=== PATIENT | male | born 1990 ===

== ENCOUNTER 2018-06-11 15:26 | Observation (INO) | payer BC ==
[2018-06-11 15:26] VITALS: BMI 28.2
--- NOTE | 2018-06-11 17:00 | ED PDOC ---
Arrival/HPI - General Chief Complaint: Palpitations Time Seen by Provider: 06/11/18 15:30 Historian: Patient - History of Present Illness Narrative History of Present Illness (Text): 06/11/18 16:58 27 year old male, with hx of HLD, presents to the Emergency Department complaining of worsening lightheadedness/ dizziness and palpitation since prior to arrival. Patient states symptoms began couple months ago with multiple episodes of dizziness and chest palpitations, which resolved spontaneously. Patient was seen by Dr. Sr for the presented symptoms and was noted to have 44% ejection rate after an Echocardiogram. Patient was soon started on Entresto with no improvement to symptoms. Patient states having a stress test done with Dr. Coulter yesterday with no acute findings and was asked to follow-up in a week. As per patient, the symptoms worsened secondary to anxiety and now presents to the Emergency Department for medical evaluation. Patient informs intermittent chest pressure and decreased appetite but denies any leg swelling. He notes intermittent DSOUZA, without orthopnea or PND. Patient denies any fever, chills, nausea, vomiting, diarrhea, constipation, abdominal pain, sick contact, work or family stressors or any other complaints. 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 Patient denies smoking cigarettes, or drinking alcohol but informs occasional caffeine intake. PMD: Dr. Winchester Cards: Dr. Coulter 06/11/18 18:48 Time/Duration: Prior to Arrival Symptom Course: Unchanged Quality: Tightness Activities at Onset: Light Context: Home Past Medical History - Provider Review Nursing Documentation Reviewed: Yes - Cardiac Hx Cardiac Disorders: Yes - Pulmonary Hx Respiratory Disorders: No - Neurological Hx Neurological Disorder: No - HEENT Hx HEENT Disorder: No - Renal Hx Renal Disorder: No - Endocrine/Metabolic Hx Endocrine Disorders: No - Hematological/Oncological Hx Blood Disorders: No - Integumentary Hx Dermatological Disorder: No - Musculoskeletal/Rheumatological Hx Musculoskeletal Disorders: No - Gastrointestinal Hx Gastrointestinal Disorders: No - Genitourinary/Gynecological Hx Genitourinary Disorders: No - Psychiatric Hx Psychophysiologic Disorder: No Hx Substance Use: No - Surgical History Hx Orthopedic Surgery: Yes (left arm) - Anesthesia Hx Anesthesia: Yes Hx Anesthesia Reactions: No Family/Social History - Physician Review Nursing Documentation Reviewed: Yes Family/Social History: No Known Family HX Smoking Status: Never Smoked Hx Alcohol Use: No Hx Substance Use: No Allergies/Home Meds Allergies/Adverse Reactions: Allergies No Known Allergies Allergy (Verified 06/10/18 11:42) Home Medications: Home Meds Medication Instructions Recorded Confirmed Aspirin [Adult Low Dose Aspirin EC] 81 mg PO DAILY 06/10/18 06/10/18 Rosuvastatin Calcium [Crestor] 10 mg PO DAILY 06/10/18 06/10/18 Sacubitril/Valsartan [Entresto 24 1 tab PO DAILY 06/10/18 06/10/18 mg-26 mg] Review of Systems - Physician Review All systems were reviewed & negative as marked: Yes - Review of Systems Constitutional: absent: Fevers Respiratory: absent: SOB, Cough Cardiovascular: Chest Pain ("chest pressure"), Palpitations Gastrointestinal: absent: Abdominal Pain, Constipation, Diarrhea, Nausea, Vomiting Neurological: Dizziness Physical Exam Vital Signs Reviewed: Yes Vital Signs Temp Pulse Resp BP Pulse Ox 06/11/18 19:13 101 H 18 135/80 99 06/11/18 17:00 107 H 18 139/76 100 06/11/18 15:53 98.4 F 92 H 18 136/79 100 Temperature: Afebrile Blood Pressure: Normal Pulse: Tachycardic Respiratory Rate: Normal Appearance: Positive for: Well-Appearing, Non-Toxic, Comfortable Pain Distress: None Mental Status: Positive for: Alert and Oriented X 3 - Systems Exam Head: Present: Atraumatic, Normocephalic Pupils: Present: PERRL Extroacular Muscles: Present: EOMI Conjunctiva: Present: Normal Mouth: Present: Moist Mucous Membranes Neck: Present: Normal Range of Motion Respiratory/Chest: Present: Clear to Auscultation, Good Air Exchange. No: Respiratory Distress, Accessory Muscle Use Cardiovascular: Present: Normal S1, S2, Tachycardic. No: Murmurs Abdomen: Present: Normal Bowel Sounds. No: Tenderness, Distention, Peritoneal Signs Back: Present: Normal Inspection. No: CVA Tenderness, Paraspinal Tenderness Upper Extremity: Present: Normal Inspection. No: Cyanosis, Edema Lower Extremity: Present: Normal Inspection. No: Edema Neurological: Present: GCS=15, CN II-XII Intact, Speech Normal Skin: Present: Warm, Dry, Normal Color. No: Rashes Psychiatric: Present: Alert, Oriented x 3, Normal Insight, Normal Concentration Medical Decision Making ED Course and Treatment: 06/11/18 16:54 Impression: 27 year old male presents to the Emergency Department for lightheadedness/dizziness and palpitation. Given hx of recent dental procedure 1mo prior, as well as cp pain, without fever ?endocarditis vs myocardidits. Given EF changes, no intermittent fevers, was on abx w/ dental procedure, less likey endocarditis. Myocarditis still possible. Last EF was 40-45%, placed on HF med and given F/U. Had negative stress 1d prior, however has worsening DSOUZA. Patient may have worsening LV function, with intact coronaries (non ACS related LV dysfx). Differential Diagnosis included but are not limited to: myocarditis, PE Plan: -- CTA of Chest -- EKG -- Labs -- Blood Culture -- Reassess and disposition Prior Visits: Notes and results from previous visits were reviewed. Progress Notes: EKG:Ordered, reviewed, and independently interpreted the EKG. Rate : 91 BPM Rhythm : NSR Interpretation : No ST-segment elevations or depressions, no T-wave inversions, normal intervals. 06/11/18 18:15 BNP 1st trop unremarkable. labs largely unremarkable Discussed case with Dr. Winchester, who is aware and agrees with Emergency Department management plan, informs patient recently had a campaign consultant appt. Paged Dr. Coulter on cardiology consult. 1946 Appreciate consult w/ Dr. Coulter: will see Pt. Reccomends CTPE. 1950 Negative PE study. Given continued SOB w/ exertion and ?myocarditis will obs. ASA, 2nd trop ordered. Patient likely requies repeat Echo to assess LVEF fx. Given that previous LVEF was 40% w/ out lab findings of elevated BNP but that now pt has worsening DSOUZA, pt likely requies repeat Echo in obs to assess LVEF. 06/11/18 20:08 - Lab Interpretations Lab Results: 06/11/18 15:45 06/11/18 15:45 Lab Results 06/11/18 15:45: TSH 3rd Generation 1.26 06/11/18 15:45: Sodium 139, Potassium 4.0, Chloride 99, Carbon Dioxide 26, Anion Gap 19, BUN 12, Creatinine 0.9, Est GFR ( Amer) > 60, Est GFR (Non- Af Amer) > 60, Random Glucose 115 H, Calcium 9.5, Magnesium 1.8, Total Bilirubin 0.6, AST 29, ALT 25, Alkaline Phosphatase 81, Troponin I < 0.01, NT- Pro-B Natriuret Pep 11.0, Total Protein 7.8, Albumin 4.7, Globulin 3.1, Albumin/ Globulin Ratio 1.5 06/11/18 15:45: WBC 8.8, RBC 4.58, Hgb 14.0, Hct 39.5 L, MCV 86.2, MCH 30.6, MCHC 35.4, RDW 12.3, Plt Count 178, MPV 12.2 H, Gran % 70.3 H, Lymph % (Auto) 24.0, Childress % (Auto) 4.8, Eos % (Auto) 0.7 L, Baso % (Auto) 0.2, Gran # 6.16, Lymph # (Auto) 2.1, Childress # (Auto) 0.4, Eos # (Auto) 0.1, Baso # (Auto) 0.02 - RAD Interpretation Radiology Orders: 06/11/18 16:54 ANGIO CHEST PE PROTOCOL [CT] Stat - EKG Interpretation Interpreted by ED Physician: Yes Type: 12 lead EKG - Medication Orders Current Medication Orders: Acetaminophen (Tylenol 325mg Tab) 650 mg PO Q6 PRN PRN Reason: TEMP>=99.5F Aspirin (Ecotrin) 81 mg PO DAILY [facility] Enoxaparin Sodium (Lovenox) 40 mg SC DAILY [facility] PRN Reason: Protocol Metoprolol Tartrate (Lopressor) 25 mg PO Q12H [facility] Non-Formulary Medication (Rosuvastatin Calcium [Crestor]) 10 mg PO DAILY [facility] Pantoprazole Sodium (Protonix Ec Tab) 20 mg PO 0600,1600 [facility] Sacubitril/Valsartan (Entresto 24 Mg-26 Mg Tablet) each PO DAILY [facility] Discontinued Medications Aspirin (Aspirin) 325 mg PO STAT STA Stop: 06/11/18 19:34 Atorvastatin Calcium (Lipitor) 40 mg PO STAT STA Stop: 06/11/18 19:40 Clopidogrel Bisulfate (Plavix) 75 mg PO STAT STA Stop: 06/11/18 19:40 - Scribe Statement The provider has reviewed the documentation as recorded by the Ironibdiana Crow. All medical record entries made by the Scribe were at my direction and personally dictated by me. I have reviewed the chart and agree that the record accurately reflects my personal performance of the history, physical exam, medical decision making, and the department course for this patient. I have also personally directed, reviewed, and agree with the discharge instructions and disposition. Disposition/Present on Arrival - Present on Arrival Any Indicators Present on Arrival: No History of DVT/PE: No History of Uncontrolled Diabetes: No Urinary Catheter: No History of Decub. Ulcer: No History Surgical Site Infection Following: None - Disposition Have Diagnosis and Disposition been Completed?: Yes Diagnosis: Dyspnea on exertion Disposition Time: 20:11 Condition: GOOD Referrals: Agustin Winchester MD [Primary Care Provider] - Follow up with primary Forms: [employer] (Djiboutian)
[2018-06-11 17:50] LABS: ALB/GLOB RATIO 1.5 (1.1-1.8); ALBUMIN 4.7 g/dL (3.0-4.8); ALT/SGPT 25 U/L (7-56); AST/SGOT 29 U/L (17-59); BLOOD UREA NITROGEN 12 mg/dL (7-21); CALCIUM 9.5 mg/dL (8.4-10.5); GFR AFRICAN-AMERICAN > 60; GFR NON-AFRICAN AMERICAN > 60
[2018-06-11 17:59] LABS: BASO # 0.02 K/mm3 (0.0-2.0); BASO % 0.2 % (0.0-3.0); EOS # 0.1 (0.0-0.7); EOS % 0.7 % (1.5-5.0); GRAN # 6.16 (1.4-6.5); GRAN % 70.3 % (50.0-68.0); LYMPH # 2.1 (1.2-3.4); MEAN CELL VOLUME 86.2 fl (80.0-105.0); MEAN CORPUSCULAR HEMOGLOBIN 30.6 pg (25.0-35.0); MEAN CORPUSCULAR HGB CONC 35.4 g/dl (31.0-37.0); MEAN PLATELET VOLUME 12.2 fl (7.0-11.0); MONO # 0.4 (0.1-0.6); MONO % 4.8 % (1.0-6.0); RBC 4.58 10^6/uL (3.5-6.1); RED CELL DISTRIBUTION WIDTH 12.3 % (11.5-14.5); WHITE BLOOD COUNT 8.8 10^3/ul (4.5-11.0)
[2018-06-11 18:01] LABS: TROPONIN I < 0.01 ng/mL
[2018-06-11 20:29] VITALS: O2SAT 100
[2018-06-11 20:38] LABS: INR 1.11; PARTIAL THROMBOPLASTIN TIME 29.2 Seconds (25.1-36.5); PROTHROMBIN TIME 12.7 SECONDS (9.4-12.5)
[2018-06-11 20:40] LABS: HDL CHOLESTEROL 40 mg/dL (29-60)
[2018-06-11 20:50] LABS: LDL CHOLESTEROL 43 mg/dL (0-129)
[2018-06-11] MEDS ORDERED: Pneumococcal 23-Valent Vaccine IM ONE (21:50)
[2018-06-11 22:01] LABS: BARBITURATES, UR NEGATIVE (NEGATIVE); BENZODIAZEPINES, UR NEGATIVE (NEGATIVE); OPIATES, UR NEGATIVE (NEGATIVE); PHENCYCLIDINE, UR NEGATIVE (NEGATIVE)
--- NOTE | 2018-06-12 03:05 | HP ---
Copied To: Agustin Winchester MD Attending MD: Agustin Winchester MD HISTORY OF PRESENT ILLNESS: The patient is a 27-year-old male who presented to the emergency room complaining of intermittent palpitations for 1 month, difficulty breathing, lightheadedness with intermittent left-sided chest pain for a month. The patient has been seen in the office in the last couple of weeks, underwent outpatient diagnostic workup including emergency room evaluation at [facility] including echocardiogram as an outpatient including cardiology evaluation and a stress test done which was yesterday which was negative. The patient was seen in emergency room for the above complaint with complaints of shortness of breath, lightheadedness, dizziness, palpitations and occasional left-sided chest pain which has been going on for more than a month. The patient underwent a stress test yesterday which was reported negative. The patient also complains of intermittent anxiety because of his medical condition. CODE STATUS: Full code. LIVING WILL AND ADVANCE DIRECTIVE: None. ALLERGIES: None. HEIGHT: 5 feet 6 inches. WEIGHT: 175. BMI: 28. HOME MEDICATIONS: Entresto 24/26 mg 1 tablet daily, Crestor 10 mg daily, Drisdol 50,000 units weekly, Ecotrin 81 mg daily. SUBSTANCE USE HISTORY: Negative for alcohol. Negative for drug use. Negative for communicable transmissible disease. FAMILY HISTORY: Not available. OCCUPATIONAL HISTORY: The patient is an electronic photocopy or machine salesman. PAST MEDICAL AND SURGICAL HISTORY: History of cardiomyopathy with decreased left ventricle ejection fraction, history of hyperlipidemia, history of anxiety, history of hypovitaminosis D, history of left arm fracture. The patient also reports having a stress test and questionable cardiac catheterization done few years ago which was negative. The patient was referred to the punch hand. The patient's past medical history significant for decreased left ventricular ejection fraction of 44% on an echo done in last 10 days ago. The patient's past medical history is significant for previous stress test done which was negative in the last few years. The patient's past medical history is significant for history of chest pain and palpitation in 2010 for which the patient had complete cardiac workup which was negative. The patient recently had a stress test which was done yesterday, which was also reported to be negative as per the [employer] report. PHYSICAL EXAMINATION: GENERAL: The patient is seen in stretcher #14 in the emergency room. VITAL SIGNS: T-max 98.4. Telemetry shows sinus rhythm, sinus tachycardia, heart rate 92, 107, 101, 93; blood pressure is 139/76 to 135/80; respiration 18; O2 sat 99% to 100%. HEENT: Head normocephalic, atraumatic. Snook conjunctivae. Anicteric sclerae. No oropharyngeal lesion. No neck rigidity. CHEST: Symmetrical. LUNGS: No rales, crackles or wheezing. CARDIOVASCULAR: S1, S2, regular rhythm. Occasional tachycardia noted. No audible murmur, gallop or rub. ABDOMEN: Soft. Positive bowel sound. No guarding, no rigidity, no rebound tenderness. No hepatosplenomegaly. GENITALIA: Male. RECTAL: Deferred. EXTREMITIES: Shows no pitting edema, no calf tenderness, no Homans' sign. NEUROLOGIC: The patient is alert, awake, oriented x3. Cranial nerves II to XII intact. Gait examination is independent. SKIN: Warm and dry. The patient has some tattoos on the skin. No neck rigidity. PSYCHIATRIC: Negative. MUSCULOSKELETAL: Body mass index is 28.2. DIAGNOSTICS: CBC is within normal limits except granulocytes of 70. PT/PTT is 12.7 and 29.2. Chemistry, CMP and LFTs are negative with a glucose of 115. Troponin is negative. BNP is negative. Cholesterol is 108, LDL 43. Urine drug screen is negative. The patient had an EKG done. The patient's echocardiogram report was reviewed. The patient's Holter monitor report was reviewed which was done in the last 10 days. Stress test report was reviewed which was done yesterday. The patient was seen in the emergency room by Dr. Davidson. The patient was given Plavix, Lipitor, and aspirin in the emergency room. The patient had a CTA of the chest done for evaluation of shortness of breath, palpitations and chest pain. CTA of the chest was negative for any pulmonary embolism. The patient's stress test report was reviewed. The patient's stress test which was done yesterday shows normal stress test, reason for termination is fatigue. The patient reached up to stage 3 and 4 of the stress test. Holter monitor was reviewed which shows sinus rhythm, sinus tachycardia. Echocardiogram report was reviewed. After reviewing the patient's entire diagnostic data and after discussing the patient's clinical condition with Dr. Coulter, I have discussed the case extensively with Dr. Davidson, the ER attending and I have advised that the patient can be discharged home because the patient has negative cardiac workup, but the ER physician insisted to admit the patient to the hospital. Despite my multiple explanations regarding entirely negative diagnostic workup from cardiac standpoint within the last 24 hours and within the last week, ER attending insisted to admit the patient to hospital. So after that insistence by the ER attending, the patient was admitted to telemetry observation. IMPRESSION: 1. Increasing shortness of breath, lightheadedness and dizziness with palpitation. 2. Atypical left-sided chest pain. 3. Tachycardia. 4. Transient hypertension. 5. Status post normal stress test less than 24 hours ago. 6. Sinus tachycardia. 7. Left ventricle ejection fraction of 44% with possible and questionable cardiomyopathy, etiology undetermined with left ventricular global hypokinesis and moderately impaired left ventricular systolic function, etiology undetermined. PLAN: As mentioned above, after reviewing the entire the patient's diagnostic data and discussing the case with Dr. Coulter from Cardiology, I have advised the ER attending that the patient can be discharged home with followup in the office with Cardiology on Wednesday because the patient's recent cardiac testing including echocardiogram, stress test and all the recent visit at the [facility] Emergency Room has been negative and the patient can be discharged with outpatient followup but the ER attending insisted to admit the patient. So at that point, the patient was admitted by the ER physician to telemetry observation. The patient has been ordered serial cardiac enzymes. Cardiology consultation has been requested. Cardiology consultation has been ordered. At present, the patient is admitted to telemetry observation. The patient is started on aspirin 81, Entresto 24/26 tablet 1 tablet daily, Lipitor 40 mg daily, Lopressor 25 every 12 hours, Lovenox 40 mg subcu daily, Plavix 75 daily, Protonix 40 mg daily, Tylenol p.r.n., oxygen 2 liters continuous. Repeat EKG ordered. Consistent carbohydrate diet, out of bed, LOR stockings, SCDs ordered. Cardiology consultation requested. At present, the patient will be admitted to telemetry observation as per the request of the ER attending, Dr. Davidson. Though, I have advised to the ER attending that the patient can be discharged with outpatient followup with Cardiology and me as the patient's recent complete cardiac workup is negative. The patient is admitted to telemetry observation. Dictated and electronically signed, not read. Agustin Winchester MD
[2018-06-12] MEDS ORDERED: Pantoprazole 20 mg EC Tab PO SCH (06:00)
[2018-06-12 07:55] VITALS: RESP 19; TEMP 97.8
[2018-06-12 09:55] VITALS: BP 122/66; PULSE 84
[2018-06-12] MEDS ORDERED: Enoxaparin 40 mg Syringe SC SCH (10:00)
[2018-06-12] MEDS ORDERED: SACUBITRIL 24mg/VALSARTAN 26mg tab PO SCH (10:00)
[2018-06-12] MEDS ORDERED: Non Formulary Medication (Rosuvastatin Calcium [Crestor] 10 MG) PO SCH (10:00)
--- NOTE | 2018-06-12 10:47 | CT ---
Date of service: 06/11/2018 PROCEDURE: CT Chest with contrast (Pulmonary Angiogram) HISTORY: Tachycardia. COMPARISON: None available. TECHNIQUE: Axial computed tomography images were obtained of the chest in the pulmonary arterial phase of enhancement. Coronal and sagittal reformatted images were created and reviewed. Intravenous contrast dose: 150 cc Omnipaque 350 Radiation dose: Total exam DLP = 428.68 mGy-cm. This CT exam was performed using one or more of the following dose reduction techniques: Automated exposure control, adjustment of the mA and/or kV according to patient size, and/or use of iterative reconstruction technique. FINDINGS: This examination is limited due to suboptimal intravenous contrast bolus timing as well as motion artifact. PULMONARY ARTERIES: The visualized pulmonary trunk, right and left main, lobar, segmental and proximal subsegmental branches of the pulmonary arteries are well opacified with no definitive filling defects seen to suggest acute central pulmonary embolus. Distal on the pulmonary vessels are poorly delineated. The pulmonary trunk measures approximately 2.73 cm. AORTA: No acute findings. No thoracic aortic aneurysm. Ascending thoracic aorta measures approximately 2.7 cm and descending thoracic aorta measures approximately 2.37 cm. LUNGS: Very minor passive/dependent type atelectasis seen both posterior lower lung zones. PLEURAL SPACES: Unremarkable. No effusion or pneumothorax. HEART: Unremarkable. No cardiomegaly. No significant pericardial effusion. LYMPH NODES: No significant mediastinal or hilar lymphadenopathy. BONES, CHEST WALL: Unremarkable. No fracture or destructive lesion OTHER FINDINGS: Unremarkable. IMPRESSION: Somewhat limited study demonstrating no definitive evidence of acute central pulmonary embolus. Preliminary report provided by overnight radiology service.
--- NOTE | 2018-06-12 14:53 | CON ---
Copied To: Arnold Coulter MD Attending MD: Arnold Coulter MD DATE: 06/12/2018 CARDIOLOGY CONSULTATION HISTORY: The patient is a 27-year-old male, who presented with general malaise and dyspnea. The patient underwent a stress test earlier in the week, which was negative. He has a documented ejection fraction of 44% on echocardiogram. He was placed on Entresto as an outpatient by a training and development professional for questionable reasons, which is then made him feel chest pain, general malaise and marked weakness. He occasionally complains of palpitations and is currently on Crestor. SOCIAL HISTORY: The patient denies smoking. REVIEW OF SYSTEMS: Fourteen-point review of systems were reviewed. Does complain of intermittent dyspnea, anxiety as well as palpitations. PHYSICAL EXAMINATION: VITAL SIGNS: On physical exam, blood pressure is 122/66, heart rate is in the 80s. NECK: Negative JVD. LUNGS: Without rales. HEART: Reveals S1, S2. EXTREMITIES: Without edema. EKG is unremarkable. LABORATORY DATA: Troponins are negative x4. Hemoglobin is unremarkable. CT scan shows no pulmonary embolism. IMPRESSION: 1. Dyspnea, which is now resolved. 2. Palpitations. 3. Anxiety. 4. Mild cardiomyopathy. 5. Normal stress test. 6. No evidence for acute coronary syndrome. PLAN: Given these findings, from a cardiac perspective, the patient can be discharged today. The patient will follow up and see me in the office in 3 days. Given his mild cardiomyopathy and given his young age, we will arrange for an outpatient MRI of the heart to evaluate his mild cardiomyopathy. This can only be arranged as an outpatient at . We will set this up when he sees me in the office on Wednesday. Arnold Coulter MD
--- NOTE | 2018-06-12 15:27 | CARD ---
APPROVED REPORT Date of service: 06/12/2018 EKG Measurement Heart [id number] <Conclusion> Normal sinus rhythm Normal ECG
--- NOTE | 2018-06-12 16:22 | CARD ---
APPROVED REPORT Date of service: 06/11/2018 EKG Measurement Heart [id number] <Conclusion> Poor data quality, interpretation may be adversely affected Normal sinus rhythm with sinus arrhythmia Normal ECG
--- NOTE | 2018-06-12 16:31 | DS ---
Copied To: Agustin Winchester MD Attending MD: Agustin Winchester MD FINAL PROGRESS NOTE AND DISCHARGE SUMMARY HISTORY OF PRESENT ILLNESS: The patient was seen in room 365, bed 2. The patient is lying in the bed. The patient is comfortable. Overnight nurse's notes were reviewed. No adverse events were documented. The patient had one episode of bradycardia while the patient was sleeping asymptomatic. The patient also complained of some anxiety. The patient refused his Entresto. The patient denies any palpitations or chest pain. PHYSICAL EXAMINATION: VITAL SIGNS: T-max 98.4; heart rate 84, 67; blood pressure 122/66, 135/80; respirations 18-19; O2 sat 100% on room air. HEENT: Head examination normocephalic, atraumatic. HEENT examination shows pink conjunctivae. Anicteric sclerae. No oropharyngeal lesion. No neck rigidity. CHEST: Symmetrical. LUNGS: No rales, crackles or wheezing. CARDIOVASCULAR: S1, S2, regular rhythm. No audible murmur, gallop or rub. ABDOMEN: Soft. Positive bowel sound. No hepatosplenomegaly noted. GENITALIA: Male. RECTAL: Deferred. EXTREMITIES: Shows no pitting edema, no calf tenderness, no Homans' sign. NEUROLOGICAL: The patient is alert, awake, oriented x3. Cranial nerves II through XII intact. Gait examination is independent. MUSCULOSKELETAL: Shows a body mass index of 28.2. PSYCHIATRIC: The patient appears to be anxious because of his medical condition. DIAGNOSTICS: WBC 8.8, hemoglobin and hematocrit 14 and 39.5, platelet 178, granulocytes 70%, PT/PTT 12.7 and 29.8. Troponin four sets were done, which were all below 0.01. Sodium 139, potassium 4, chloride 99, CO2 of 26, anion gap 19, BUN 22, creatinine 0.9, GFR greater than 60, glucose 115, calcium 9.5, magnesium 1.8, total bili 0.6, AST 29, ALT 25. Troponin all sets negative. BNP 11, cholesterol 108, LDL 43. Urine drug screen is negative. CTA was negative for pulmonary embolism, only bibasilar atelectasis noted. EKG shows sinus rhythm. No ST elevation, depression noted. The patient was seen by Dr. Arnold Coulter from Cardiology. The patient was cleared for discharge by Cardiology. FINAL IMPRESSION, PLAN AND DISCHARGE DIAGNOSES: 1. Shortness of breath, lightheadedness, dizziness with palpitation and atypical chest pain, etiology unknown versus questionable anxiety. 2. Atypical chest pain. 3. Tachycardia 4. Transient hypertension. 5. Mild granulocytosis. 6. History of hyperlipidemia, hypovitaminosis D. 7. Bibasilar dependent atelectasis. 8. Moderately impaired left ventricular systolic function with global left ventricular hypokinesis and left ventricle ejection fraction of 44%. Plan at this time, the patient was cleared by Cardiology for discharge. The patient will be discharged home after cardiology clearance. Discharge followup with Dr. Winchester within 1 week. Discharge followup with Dr. Coulter within 1 week. DISCHARGE MEDICATIONS: As per updated ambulatory orders plus new prescription. Current discharge medications: Xanax 0.25 b.i.d. p.r.n., Ecotrin 81 mg daily, vitamin D 50,000 units weekly. The patient was given a prescription of Lopressor 25 mg daily. The patient is on Crestor 10 or 20 mg daily. The patient was prescribed Entresto 24/26 mg once daily, which the patient may or may not continue depending upon Cardiology recommendation. During this hospitalization, the patient was extensively explained about the details of his medical condition, diagnoses, test results, recommendation, followup, restrictions, limitations all discussed and explained to the patient at length and all questions concerned answered. Time spent in the discharge process 45 minutes. Dictated and electronically signed, not read. Agustin Winchester MD
== END 2018-06-12 13:24 | disposition home or self-care (01) ==
LOC: ED 15:26 → INTOOBSV 19:52 → ERH 19:52 → 3RNO 22:23
PROVIDERS: ADMIT Internal Medicine; ATTEND Internal Medicine
DX: R07.89 Other chest pain (principal); R06.02 Shortness of breath; R42 Dizziness and giddiness; R00.2 Palpitations; R00.0 Tachycardia, unspecified; I10 Essential (primary) hypertension; E78.5 Hyperlipidemia, unspecified; F41.9 Anxiety disorder, unspecified; E55.9 Vitamin D deficiency, unspecified; J98.11 Atelectasis; I51.4 Myocarditis, unspecified; I42.9 Cardiomyopathy, unspecified; Z87.81 Personal history of (healed) traumatic fracture; Z79.82 Long term (current) use of aspirin; Z79.899 Other long term (current) drug therapy
CPT/HCPCS: 36415; 71275; 80053; 80061; 83036; 83735; 83880; 84443; 84484; 85025; 85610; 85730; 87040; 93005; 99285; G0378; G0480; J1650; Q9967

== ENCOUNTER 2018-07-23 20:25 | Observation (INO) | payer BC ==
[2018-07-23 20:25] VITALS: BMI 28.2
--- NOTE | 2018-07-23 21:07 | ED PDOC ---
Arrival/HPI - General Chief Complaint: Chest Pain Time Seen by Provider: 07/23/18 20:35 Historian: Patient - History of Present Illness Narrative History of Present Illness (Text): 07/23/18 21:03 28 year old male, whose past medical history includes questionable cardiomyopathy previously on Entresto, presents to the emergency department complaining of reoccurring chest pain and dyspnea on exertion. Patient is not a smoker. Patient also reports occasional cough and occasional palpitations as well as some diaphoresis earlier , but denies any fever, chills, abdominal pain , nausea, vomiting, diarrhea, urinary symptoms, back pain, neck pain, headache, dizziness, or any other complaints. PMD: Dr. Marlow Wheelman: Dr. Busby Symptom Onset: Sudden Symptom Course: Intermittent Activities at Onset: Light Context: Home Past Medical History - Provider Review Nursing Documentation Reviewed: Yes - Cardiac Hx Cardiac Disorders: Yes Other/Comment: pt went to see dr schneider for c/o intermitent palpitations x 2 month, left chest pressure worse with deep breaths and activity, lightheaded, dizzy, and was sent for echocardiogram done on 05/31/18 showed 44% ejection rate , wore 24 hour haltor monitor, dr hanson started pt on entresto 24mg-26mg 1 tab daily no improvement, had stres test yesterday 06/10/18ordered by dr busby. pt has had prior stress test 08/10/2011. as per pt Dr. Busby took him off [facility] due to EF of 64% on most recent stress test. - Pulmonary Hx Respiratory Disorders: No - Neurological Hx Neurological Disorder: Yes Hx Dizziness: Yes - HEENT Hx HEENT Disorder: Yes Other/Comment: white coating and small white lesions on inner left cheek which pt noticed this past week - Renal Hx Renal Disorder: No - Endocrine/Metabolic Hx Endocrine Disorders: No - Hematological/Oncological Hx Blood Disorders: No - Integumentary Hx Dermatological Disorder: No - Musculoskeletal/Rheumatological Hx Falls: No - Gastrointestinal Hx Gastrointestinal Disorders: Yes (no appetite x 1 month) - Genitourinary/Gynecological Hx Genitourinary Disorders: No - Psychiatric Hx Psychophysiologic Disorder: No Hx Substance Use: No - Surgical History Hx Orthopedic Surgery: Yes (left arm fx age 3 w/pins which were removed) Other/Comment: pt had dental surgery to removed left upper wisdom tooth and molar about 1 1/2 months ago - Anesthesia Hx Anesthesia: Yes Hx Anesthesia Reactions: No Hx Malignant Hyperthermia: No Family/Social History - Physician Review Nursing Documentation Reviewed: Yes Family/Social History: No Known Family HX Smoking Status: Never Smoked Hx Alcohol Use: No Hx Substance Use: No Allergies/Home Meds Allergies/Adverse Reactions: Allergies No Known Allergies Allergy (Verified 06/10/18 11:42) Home Medications: Home Meds Medication Instructions Recorded Confirmed Aspirin [Adult Low Dose Aspirin EC] 81 mg PO DAILY 06/10/18 06/11/18 Rosuvastatin Calcium [Crestor] 10 mg PO DAILY 06/10/18 06/11/18 Sacubitril/Valsartan [Entresto 24 1 tab PO DAILY 06/10/18 06/11/18 mg-26 mg] Cholecalciferol [Vitamin D 1000 IU] 50,000 mg PO MON 06/11/18 06/11/18 Review of Systems - Physician Review All systems were reviewed & negative as marked: Yes - Review of Systems Constitutional: absent: Fevers, Other (Chills) Respiratory: Cough Cardiovascular: Chest Pain, Palpitations, DSOUZA Gastrointestinal: absent: Abdominal Pain, Diarrhea, Nausea, Vomiting Genitourinary Male: absent: Dysuria, Frequency, Hematuria Musculoskeletal: absent: Back Pain, Neck Pain Neurological: absent: Headache, Dizziness Physical Exam Vital Signs Reviewed: Yes Vital Signs Temp Pulse Pulse Resp BP Pulse Ox 07/23/18 22:20 98.7 F 95 H 19 128/74 97 07/23/18 21:28 95 H 07/23/18 20:26 98.4 F 95 H 20 140/79 100 Temperature: Afebrile Blood Pressure: Normal Pulse: Regular Respiratory Rate: Normal Appearance: Positive for: Well-Appearing, Non-Toxic, Comfortable Pain Distress: None Mental Status: Positive for: Alert and Oriented X 3 - Systems Exam Head: Present: Atraumatic, Normocephalic Pupils: Present: PERRL Extroacular Muscles: Present: EOMI Conjunctiva: Present: Normal Mouth: Present: Moist Mucous Membranes Neck: Present: Normal Range of Motion Respiratory/Chest: Present: Clear to Auscultation, Good Air Exchange. No: Respiratory Distress, Accessory Muscle Use Cardiovascular: Present: Regular Rate and Rhythm, Normal S1, S2. No: Murmurs Abdomen: No: Tenderness, Distention, Peritoneal Signs Back: Present: Normal Inspection Upper Extremity: Present: Normal Inspection. No: Cyanosis, Edema Lower Extremity: Present: Normal Inspection. No: Edema Neurological: Present: GCS=15, CN II-XII Intact, Speech Normal Skin: Present: Warm, Dry, Normal Color. No: Rashes Psychiatric: Present: Alert, Oriented x 3, Normal Insight, Normal Concentration Medical Decision Making ED Course and Treatment: 07/23/18 21:03 Impression: 28 year old male presents complaining of reoccurring chest pain and dyspnea on exertion associated with occasional cough and palpitations Plan: -- EKG -- Labs -- Chest X-ray -- Reassess and disposition Prior Visits: Notes and results from previous visits were reviewed. Patient was last seen in the emergency department on 06/11/18 presents complaining of worsening lightheadedness/ dizziness and palpitation since prior to arrival. Patient was discharged. Progress Notes: EKG shows NSR at 98 BPM with no acute changes. Interpreted by me. 07/23/18 22:04 CXR Impression: As read by me, no acute process. 07/23/18 23:[address] Pina covering Dr. Marlow who is aware and agrees with the plan. Accepts patient to Dr. Marlow's service. Request Dr. Busby for cardio consult. - Lab Interpretations Lab Results: 07/23/18 21:34 07/23/18 21:34 Lab Results 07/23/18 21:34: PT 11.8, INR 1.03, APTT 28.3 07/23/18 21:34: WBC 7.2, RBC 4.29, Hgb 13.2 L, Hct 38.0 L, MCV 88.6, MCH 30.8, MCHC 34.7, RDW 12.8, Plt Count 142, MPV 11.3 H 07/23/18 21:34: Sodium 140, Potassium 3.9, Chloride 103, Carbon Dioxide 27, Anion Gap 15, BUN 12, Creatinine 0.8, Est GFR ( Amer) > 60, Est GFR (Non- Af Amer) > 60, Random Glucose 125 H, Calcium 9.3, Total Bilirubin 0.3, AST 18, ALT 22, Alkaline Phosphatase 79, Lactate Dehydrogenase 406, Total Creatine Kinase 59, Troponin I 0.02 D, NT-Pro-B Natriuret Pep 26.1, Total Protein 7.0, Albumin 4.1, Globulin 2.8, Albumin/Globulin Ratio 1.4 I have reviewed the lab results: Yes - RAD Interpretation Radiology Orders: 07/23/18 21:12 CHEST PORTABLE [RAD] Stat - EKG Interpretation Interpreted by ED Physician: Yes Type: 12 lead EKG - Medication Orders Current Medication Orders: Discontinued Medications Aspirin (Aspirin) 325 mg PO ONCE STA Stop: 07/23/18 22:23 - Scribe Statement The provider has reviewed the documentation as recorded by the Maria Guadalupe Orlando Provider Scribe Attestation: All medical record entries made by the Maria Guadalupe were at my direction and personally dictated by me. I have reviewed the chart and agree that the record accurately reflects my personal performance of the history, physical exam, medical decision making, and the department course for this patient. I have also personally directed, reviewed, and agree with the discharge instructions and disposition. Disposition/Present on Arrival - Present on Arrival Any Indicators Present on Arrival: No History of DVT/PE: No History of Uncontrolled Diabetes: No Urinary Catheter: No History of Decub. Ulcer: No History Surgical Site Infection Following: None - Disposition Have Diagnosis and Disposition been Completed?: Yes Diagnosis: Chest pain Disposition: HOSPITALIZED Disposition Time: 22:43 Patient Problems: Current Active Problems Problem Status Onset Chest pain Acute Condition: STABLE
[2018-07-23 21:38] LABS: HEMOGLOBIN 13.2 g/dL (14.0-18.0); MEAN CELL VOLUME 88.6 fl (80.0-105.0); MEAN CORPUSCULAR HEMOGLOBIN 30.8 pg (25.0-35.0); MEAN CORPUSCULAR HGB CONC 34.7 g/dl (31.0-37.0); MEAN PLATELET VOLUME 11.3 fl (7.0-11.0); RBC 4.29 10^6/uL (3.5-6.1); RED CELL DISTRIBUTION WIDTH 12.8 % (11.5-14.5); WHITE BLOOD COUNT 7.2 10^3/ul (4.5-11.0)
[2018-07-23 21:46] LABS: INR 1.03; PARTIAL THROMBOPLASTIN TIME 28.3 Seconds (25.1-36.5); PROTHROMBIN TIME 11.8 SECONDS (9.4-12.5)
[2018-07-23 22:05] LABS: ALB/GLOB RATIO 1.4 (1.1-1.8); ALBUMIN 4.1 g/dL (3.0-4.8); ALT/SGPT 22 U/L (7-56); AST/SGOT 18 U/L (17-59); BLOOD UREA NITROGEN 12 mg/dL (7-21); CALCIUM 9.3 mg/dL (8.4-10.5); GFR NON-AFRICAN AMERICAN > 60
[2018-07-23 22:16] LABS: B-TYPE NATRIURETIC PEPTIDE 26.1 pg/mL (0-450); TROPONIN I 0.02 ng/mL
--- NOTE | 2018-07-24 09:39 | CP.PCM.CON ---
History of Present Illness - History of Present Illness History of Present Illness: CARDIOLOGY CONSULT DR. RINALDI Covering for Dr. Rinaldi Awake,alert, denies chest pain but chest discomfort and tight chest when deep breathing Reason for consultation: Cardiac evaluation of chest pain Brief history of present illness: A 28 year old male, known to Dr. Rinaldi, who came in to the ER due to chest discomfort, lower mid sternum, non radiating, denies chest pain, chest tighness when taking deep breaths, also complaining of easy fatigue and dypsnea on exertion and palpitations. History of hyperlipidemia ,Vitamin D deficiency, anxiety. EKG normal sinus rhythm, no ischemia, Chest X ray normal. Troponin normal x 2. Seen and examined by me and Dr. Laureano Review of Systems - Review of Systems All systems: reviewed and no additional remarkable complaints except Review of Systems: as per HPI Past Patient History - Past Social History Smoking Status: Never Smoked - CARDIAC Hx Cardiac Disorders: Yes Other/Comment: pt went to see dr schneider for c/o intermitent palpitations x 2 month, left chest pressure worse with deep breaths and activity, lightheaded, dizzy, and was sent for echocardiogram done on 05/31/18 showed 44% ejection rate , wore 24 hour haltor monitor, dr hanson started pt on entresto 24mg-26mg 1 tab daily no improvement, had stres test yesterday 06/10/18ordered by dr rinaldi. pt has had prior stress test 08/10/2011. as per pt Dr. Rinaldi took him off [facility] due to EF of 64% on most recent stress test. - PULMONARY Hx Respiratory Disorders: No - NEUROLOGICAL Hx Neurological Disorder: Yes Hx Dizziness: Yes - HEENT Hx HEENT Problems: Yes Other/Comment: white coating and small white lesions on inner left cheek which pt noticed this past week - RENAL Hx Chronic Kidney Disease: No - ENDOCRINE/METABOLIC Hx Endocrine Disorders: No Other/Comment: coxsackie virus - HEMATOLOGICAL/ONCOLOGICAL Hx Blood Disorders: No - INTEGUMENTARY Hx Dermatological Problems: No - MUSCULOSKELETAL/RHEUMATOLOGICAL Hx Falls: No - GASTROINTESTINAL Hx Gastrointestinal Disorders: Yes (no appetite x 1 month) - GENITOURINARY/GYNECOLOGICAL Hx Genitourinary Disorders: No - PSYCHIATRIC Hx Psychophysiologic Disorder: No Hx Substance Use: No - SURGICAL HISTORY Hx Orthopedic Surgery: Yes (left arm fx age 3 w/pins which were removed) Other/Comment: pt had dental surgery to removed left upper wisdom tooth and molar about 1 1/2 months ago - ANESTHESIA Hx Anesthesia: Yes Hx Anesthesia Reactions: No Hx Malignant Hyperthermia: No Meds Allergies/Adverse Reactions: Allergies Allergy/AdvReac Type Severity Reaction Status Date / Time No Known Allergies Allergy Verified 06/10/18 11:42 - Medications Medications: Current Medications Alprazolam (Xanax) 0.25 mg PO BID PRN; Protocol PRN Reason: Anxiety Stop: 07/30/18 23:38 Aspirin (Ecotrin) 81 mg PO DAILY [facility] Atorvastatin Calcium (Lipitor) 40 mg PO DAILY [facility] Metoprolol Tartrate (Lopressor) 25 mg PO DAILY [facility] Sacubitril/Valsartan (Entresto 24 Mg-26 Mg Tablet) 1 each PO DAILY [facility] Physical Exam - Constitutional Appears: No Acute Distress - Eye Exam Eye Exam: Normal appearance - ENT Exam ENT Exam: Mucous Membranes Moist - Respiratory Exam Respiratory Exam: Clear to Auscultation Bilateral, NORMAL BREATHING PATTERN - Cardiovascular Exam Cardiovascular Exam: REGULAR RHYTHM, +S1, +S2 Additional comments: NSR telemetry chest discomfort - GI/Abdominal Exam GI & Abdominal Exam: Normal Bowel Sounds, Soft - Neurological Exam Neurological exam: Alert, Oriented x3 - Psychiatric Exam Psychiatric exam: Anxious - Skin Skin Exam: Intact, Warm Results - Vital Signs Recent Vital Signs: Last Vital Signs Temp 98.1 F 07/24/18 09:29 Pulse 79 07/24/18 09:29 Resp 20 07/24/18 09:29 BP 109/71 07/24/18 09:29 Pulse Ox 97 07/24/18 09:29 - Labs Result Diagrams: 07/23/18 21:34 07/23/18 21:34 Labs: Laboratory Results - last 24 hr 07/24/18 06:30 Troponin I 0.02 Assessment & Plan - Assessment and Plan (Free Text) Assessment: A 28 year old male, known to Dr. Rinaldi, who came in to the ER due to chest discomfort, lower mid sternum, non radiating, denies chest pain, complaints of chest tighness when taking deep breaths, also complaining of easy fatigue and dypsnea on exertion and palpitations. History of hyperlipidemia,Vitamin D deficiency, anxiety. Patient seeked other physician for second opinion [place] [facility] [place] Patient claimed that he went to another MD and tested for Lyme disease which was negative, however positive for Coxsackie B (results shown by patient on his phone).Also claimed to have GERD by another MD and prescribed Protonix but patient did not take medications. EKG normal sinus rhythm, no ischemia, Chest X ray normal. Troponin normal x 2. Rule out acute coronary syndrome. Atypical chest pain, anxiety, possible GERD. Review of previous cardiac [place] [facility] [place]- MUGA scan- Normal, LVEF 64% 06/10/18-Stress test- normal, no evidence of ischemia 05/31/1882-[id number]-Qwdnso chamber size, LVEF 40-45% Mild to moderate apical LV hypokinesis No valvular abnormalities 05/31/18-Holter monitor-Sinus rhythm,bradycardia,tachycardia Plan: Stable, anxious, no distress Chest discomfort, atypical chest pain Normal troponins x 2, normal EKG Will start Protonix for GERD symptoms Xopenex PRN nebulizer treatment for shortness of breath Consider ID consult for positive Coxsackie B per patient Consider GI work up for GERD Consider Psych consult for anxiety Continue current treatment Continue current medications Further recommendations during hospital course Plan and treatment discussed with Dr. Laureano Thank you for the opportunity of taking care of Minor Rinaldi will resume care on Wednesday - Date & Time Date: 07/24/18 Time: 10:10
--- NOTE | 2018-07-24 09:39 | HP ---
ADMISSION NOTE HISTORY OF PRESENT ILLNESS: Mr. Pina is an young 28-year-old male, admitted to the hospital with recurring chest pain and shortness of breath on exertion. He is not a smoker. He was being evaluated for questionable cardiomyopathy by Dr. Coulter. Denies any fever, chills, rigors. Troponins were negative. EKG did not show any new changes. He sees Dr. Marlow, who is his primary care physician. Denies any back pain. PAST MEDICAL HISTORY: Dizziness, loss of appetite. PAST SURGICAL HISTORY: Orthopedic surgery, left arm. FAMILY HISTORY: No positive family history. PERSONAL HISTORY: Never smoked. ALLERGIES: NO KNOWN DRUG ALLERGIES. HOME MEDICATIONS: Aspirin 81 mg daily, Crestor 10 mg daily, Entresto 1 tablet daily, vitamin D. REVIEW OF SYSTEMS: As per HPI. Rest of 12-point review of systems reviewed negative. PHYSICAL EXAMINATION: GENERAL: Comfortable in bed, in no acute distress. VITAL SIGNS: Temperature 98.4, heart rate 95 per minute, respiratory rate 20 per minute, blood pressure 120/70, heart rate 97 per minute. HEENT: Normal. CHEST: Air entry present and equal, bilateral. No added sounds. CARDIOVASCULAR: S1, S2 normal. No murmur. No gallop. ABDOMEN: Soft, nontender. No hepatosplenomegaly. EXTREMITIES: No edema. SKIN: No petechiae. No rash, warmth. SPINE: Nontender. EKG shows normal sinus rhythm, 98 beats per minute. No acute changes. Chest x-ray: No infiltrate. LABORATORY DATA: White count 7.2, hemoglobin 13.2, hematocrit 38, platelet 142. Sodium 140, potassium 3.9, BUN 12, creatinine 0.8, glucose 125, troponin 0.02. ASSESSMENT AND PLAN: He will be admitted to the hospital tele monitoring. We will do the serial troponins. Continue aspirin 81 mg daily, Xanax 0.25 mg b.i.d. p.r.n. for anxiety. We will continue beta angeles 25 mg p.o. daily, Lipitor 40 mg daily, Entresto 1 tablet daily. Cardiology consultation, Dr. Coulter requested. Labs showed mild anemia, hemoglobin 13.2. We will continue to monitor. Renal functions within normal limits. Glucose is normal. LFTs within normal limits. Cierra Pina MD [facility] # [id number]
[2018-07-24] MEDS: SACUBITRIL 24mg/VALSARTAN 26mg tab PO SCH (09:42)
[2018-07-24] MEDS ORDERED: Levalbuterol 0.63 MG/3 ML Inhal Soln UD IH PRN (10:53)
--- NOTE | 2018-07-24 14:02 | CARD ---
APPROVED REPORT Date of service: 07/23/2018 EKG Measurement Heart [id number] <Conclusion> Normal sinus rhythm Normal ECG
--- NOTE | 2018-07-24 16:48 | RAD ---
Date of service: 07/23/2018 HISTORY: pain/mane COMPARISON: No prior. FINDINGS: LUNGS: No active pulmonary disease. PLEURA: No significant pleural effusion identified, no pneumothorax apparent. CARDIOVASCULAR: Normal. OSSEOUS STRUCTURES: No significant abnormalities. VISUALIZED UPPER ABDOMEN: Normal. OTHER FINDINGS: None. IMPRESSION: No active disease.
[2018-07-24] MEDS: Pantoprazole 20 mg EC Tab PO SCH (17:16)
[2018-07-25] MEDS: Pantoprazole 20 mg EC Tab PO SCH (06:09)
[2018-07-25 08:06] VITALS: BP 103/61; PULSE 84; RESP 19; TEMP 97.8; O2SAT 98
[2018-07-25] MEDS: SACUBITRIL 24mg/VALSARTAN 26mg tab PO SCH (10:15)
--- NOTE | 2018-07-25 10:43 | PN ---
DATE: 07/25/2018 SUBJECTIVE: A 28-year-old white male, complained of chest pain, shortness of breath. The patient has had a 3-4 months' course of history kind of starting with chest pain, found to have an ejection fraction that was 40-45%. On the end of 05/31/2018, had an echocardiogram done. The patient was seen by Cardiology, was treated with beta blockers and afterload reduction, Entresto. The patient had subsequent echocardiogram done on 06/18/2018 showed an ejection fraction of 64%. The patient continued to have shortness of breath and difficulty breathing and near syncopal episodes over the last 10 days, was seen in my office this week, approximately 3 days ago, saw my nurse practitioner, had PFTs done showing some type of obstructive airway disease and was prescribed steroids. The patient did an obstructive series; however, over the last 24 hours had episodes of shortness of breath, dyspnea on exertion and some difficulty in walking up the hill. The patient came to the emergency room, was admitted with indeterminate cardiac enzymes of 0.02 troponins. The patient has no past medical history before this summer relating to his chest, his heart or his lungs. The patient has no family history of heart disease, has no history of hypertension, diabetes, rheumatic heart disease, valvular heart disease, congenital heart disease. PAST SURGICAL HISTORY: The patient has no surgical history. SOCIAL HISTORY: He is a nonsmoker, nondrinker. Does not use any illicit drugs. ALLERGIES: HE HAS NO ALLERGIES. FAMILY HISTORY: His family history is not positive for heart or lung disease and only for mild hypertension and remote history of diabetes. REVIEW OF SYSTEMS: Remarkable only for shortness of breath, near fainting episode, some vague chest pain. No diaphoresis. No nausea or vomiting. No radiation of pain to the neck, jaw or arms. The patient denies diarrhea, vomiting. Denies any severe headaches. Does complain of some palpitations. Denies any rashes. Denies any exposure to ticks or tick-related diseases. Denies any travel history. PHYSICAL EXAMINATION: GENERAL: Physical examination shows a well-developed, well-nourished white male, in no apparent distress, in bed. VITAL SIGNS: Blood pressure 103/61, temperature 97.8, pulse is 84. ASSESSMENT AND PLAN: The patient had a normal CT of the chest with contrast in the last month. Chest x-ray in the [facility] this admission is negative. Plan is for PFTs, titers. Await Dr. Coulter's cardiac consultation and possible discharge if all is negative. Felipe Marlow MD
--- NOTE | 2018-07-25 14:11 | PN ---
DATE: 07/25/2018 CARDIOLOGY FOLLOWUP SUBJECTIVE: The patient presented with dyspnea and intermittent chest pain, which has been going on for quite a while. PHYSICAL EXAMINATION: VITAL SIGNS: Blood pressure is 103/61, the heart rate is in the 80s. NECK: Negative JVD. LUNGS: Without rales. HEART: Reveals S1, S2. EXTREMITIES: Without edema. LABORATORY DATA: Troponins are negative x2. The glucose is 125. Review of his previous cardiac workup has revealed a normal stress test performed in 06/2018. CT scan of the chest reveals no embolism, no evidence for aortic disease. Nuclear MUGA scan of the heart reveals normal wall motion with an ejection fraction of 64%. IMPRESSION: 1. Noncardiac chest pain. 2. Intermittent palpitations without documented arrhythmias. 3. Shortness of breath, which cannot be explained by his normal cardiac function. PLAN: Given these findings, from a cardiac perspective, the patient can be discharged. I have discussed with the patient about his need for pulmonary consult to evaluate a pulmonary cause of his dyspnea. PFTs may be reasonable to do, which can be all done as an outpatient. Followup and instructions have been given to the patient in detail. Arnold Coulter MD
== END 2018-07-25 15:40 | disposition home or self-care (01) ==
LOC: ED 20:25 → ERH 22:42 → 3RSO 07-24 01:05
PROVIDERS: ADMIT Internal Medicine; ATTEND Internal Medicine
DX: R07.89 Other chest pain (principal); R00.2 Palpitations; R06.02 Shortness of breath; D64.9 Anemia, unspecified; K21.9 Gastro-esophageal reflux disease without esophagitis; E78.5 Hyperlipidemia, unspecified; F41.9 Anxiety disorder, unspecified; Z79.82 Long term (current) use of aspirin; Z82.49 Family history of ischemic heart disease and other diseases of the circulatory system; Z83.3 Family history of diabetes mellitus
CPT/HCPCS: 36415; 71045; 80053; 82550; 83615; 83880; 84484; 85027; 85610; 85730; 87449; 93005; 99283; G0378

== ENCOUNTER 2019-01-16 21:06 | Emergency (ER) | payer SELFPAY ==
--- NOTE | 2019-01-16 21:15 | ED PDOC ---
Arrival/HPI - General Time Seen by Provider: 01/16/19 21:13 Historian: Patient - History of Present Illness Narrative History of Present Illness (Text): 01/17/19 01:58 28 year old male, with a past medical history of hyperlipidemia, who presents to the Emergency department complaining of chest palpitations for the past couple of days. Patient reports he has had extensive cardiac workup recently. Patient denies any generalized pain, headaches, chills, SOB, fever, cough, any recent travel, sick contact or any other complaints. Time/Duration: 24 hours Symptom Onset: Gradual Symptom Course: Unchanged Activities at Onset: Light Context: Home Past Medical History - Provider Review Nursing Documentation Reviewed: Yes - Cardiac Hx Cardiac Disorders: Yes (NON CARDIAC CHEST PAIN) Hx [place]: No Other/Comment: PT. HAD A CARDIAC WORK-UP ORDERED BY HOUSING QUALITY STANDARD INSPECTOR DR. BLAKE DANGELO. HE HAD EKG AND ECHO STRESS TEST. HE STATES HOUSING QUALITY STANDARD INSPECTOR TOLD HIM THE LEFT SIDE OF HIS HEART WAS NOT PUMPMING WELL, AND HIS INJECTION FRACTION IS 40%. ANESTHESIA DR. SALES MADE AWARE. - Pulmonary Hx Respiratory Disorders: Yes (DYSPNEA ON EXERTION) Hx Asthma: No Hx Sleep Apnea: No - Neurological Hx Neurological Disorder: No HX Cerebrovascular Accident: No Hx Seizures: No Hx Transient Ischemic Attacks (TIA): No - HEENT Hx HEENT Disorder: Yes Other/Comment: DEVELOPED ORAL THRUSH FOLLOWING ORAL SURGERY TO REMOVE IMPACTED TOOTH IN MAY 2018. - Renal Hx Renal Disorder: No - Endocrine/Metabolic Hx Endocrine Disorders: No - Hematological/Oncological Hx Blood Disorders: No Hx Blood Transfusions: No Other/Comment: H/O [facility]. - Integumentary Hx Dermatological Disorder: No Other/Comment: H/O [facility] - Musculoskeletal/Rheumatological Hx Musculoskeletal Disorders: No Hx Back Pain: No Hx Falls: No Hx Fractures: Yes (LEFT ARM A CHILD WITH SURGERY) Hx Herniated Disk: No Other/Comment: PINS REMOVED FROM LEFT ARM AFTER SURGERY FOR FRACTURE A CHILD - Gastrointestinal Hx Gastrointestinal Disorders: Yes Hx Gastroesophageal Reflux: Yes - Genitourinary/Gynecological Hx Genitourinary Disorders: No - Psychiatric Hx Psychophysiologic Disorder: Yes Hx Anxiety: Yes Hx Substance Use: No - Surgical History Hx Orthopedic Surgery: Yes (LEFT ARM FX. REPAIR A CHILD) Other/Comment: ORAL SURGERY, STYE REMOVED FROM EYE, LT ARM FRACTURE - Anesthesia Hx Anesthesia: Yes Hx Anesthesia Reactions: No Hx Malignant Hyperthermia: No Family/Social History - Physician Review Nursing Documentation Reviewed: Yes Family/Social History: Unknown Family HX Smoking Status: Never Smoked Hx Alcohol Use: No Hx Substance Use: No Allergies/Home Meds Allergies/Adverse Reactions: Allergies No Known Allergies Allergy (Verified 01/16/19 21:18) Home Medications: Home Meds Medication Instructions Recorded Confirmed No Known Home Med 01/16/19 01/16/19 Review of Systems - Physician Review All systems were reviewed & negative as marked: Yes - Review of Systems Constitutional: absent: Fevers Respiratory: absent: SOB, Cough Cardiovascular: Palpitations Gastrointestinal: absent: Abdominal Pain Musculoskeletal: absent: Back Pain, Neck Pain Neurological: absent: Headache, Dizziness Physical Exam Temperature: Afebrile Blood Pressure: Normal Pulse: Tachycardic Respiratory Rate: Normal Appearance: Positive for: Well-Appearing, Non-Toxic, Comfortable Pain Distress: None Mental Status: Positive for: Alert and Oriented X 3 - Systems Exam Head: Present: Atraumatic, Normocephalic Pupils: Present: PERRL Extroacular Muscles: Present: EOMI Conjunctiva: Present: Normal Mouth: Present: Moist Mucous Membranes Neck: Present: Normal Range of Motion Respiratory/Chest: Present: Clear to Auscultation, Good Air Exchange. No: Respiratory Distress, Accessory Muscle Use Cardiovascular: Present: Regular Rate and Rhythm, Normal S1, S2. No: Murmurs Abdomen: No: Tenderness, Distention, Peritoneal Signs Back: Present: Normal Inspection Upper Extremity: Present: Normal Inspection. No: Cyanosis, Edema Lower Extremity: Present: Normal Inspection. No: Edema Neurological: Present: GCS=15, Speech Normal Skin: Present: Warm, Dry, Normal Color. No: Rashes Psychiatric: Present: Alert, Oriented x 3, Normal Insight, Normal Concentration Medical Decision Making ED Course and Treatment: 01/16/19 21:14 Impression: 28 year old male presents to the emergency department complaining of chest palpitations earlier today. Differential Diagnosis included but are not limited to: Plan: -- EKG -- Basic labs -- Chest X-ray -- IV fuids -- Zofran -- Reassess and disposition Prior Visits: Notes and results from previous visits were reviewed. Progress Notes: EKG reviewed, shows sinus tachycardia at 113 01/17/19 01:[address] Marlow, patient is clear to be discharged, patient will follow up with Dr. Coulter or patient's security software engineer, patient reports feeling better after IV hydration in the Emergency room. - Scribe Statement The provider has reviewed the documentation as recorded by the Scribe Provider Attestation: Jorge Romero All medical record entries made by the Scribe were at my direction and personally dictated by me. I have reviewed the chart and agree that the record accurately reflects my personal performance of the history, physical exam, medical decision making, and the department course for this patient. I have also personally directed, reviewed, and agree with the discharge instructions and disposition. Disposition/Present on Arrival - Present on Arrival Any Indicators Present on Arrival: No History of DVT/PE: No History of Uncontrolled Diabetes: No Urinary Catheter: No History Surgical Site Infection Following: None - Disposition Have Diagnosis and Disposition been Completed?: Yes Diagnosis: Palpitations Disposition: HOME/ ROUTINE Disposition Time: 22:45 Condition: IMPROVED Discharge Instructions (ExitCare): Palpitations (DC) Additional Instructions: MINOR CRUZ, thank you for letting us take care of you today. Your provider was Minor Danielson DO and you were treated for PALPITATIONS. The emergency medical care you received today was directed at your acute symptoms. If you were prescribed any medication, please fill it and take as directed. It may take several days for your symptoms to resolve. Return to the Emergency Department if your symptoms worsen, do not improve, or if you have any other problems. Please contact your doctor or call one of the physicians/clinics you have been referred to that are listed on the Patient Visit Information form that is included in your discharge packet. Bring any paperwork you were given at discharge with you along with any medications you are taking to your follow up visit. Our treatment cannot replace ongoing medical care by a primary care provider outside of the emergency department. Thank you for allowing the [facility] team to be part of your care today. Follow up with Dr. Coulter or your security software engineer this week for re-evaluation and further management. Referrals: Felipe Marlow MD [Primary Care Provider] - Follow up with primary Arnold Coulter MD [Staff Provider] - Follow up with primary Forms: [employer] (Urdu)
[2019-01-16 21:18] VITALS: BMI 26.6
[2019-01-16 21:29] VITALS: TEMP 97.6
[2019-01-16] MEDS ORDERED: Sodium Chloride 0.9% 1,000 ML IV STA (21:49)
[2019-01-16 22:04] LABS: ALB/GLOB RATIO 1.3 (1.1-1.8); ALBUMIN 4.4 g/dL (3.0-4.8); ALT/SGPT 15 U/L (7-56); AST/SGOT 26 U/L (17-59); BLOOD UREA NITROGEN 12 mg/dL (7-21); CALCIUM 9.2 mg/dL (8.4-10.5); GFR NON-AFRICAN AMERICAN > 60
[2019-01-16 22:05] LABS: BASO # 0.04 K/mm3 (0.0-2.0); BASO % 0.5 % (0.0-3.0); EOS # 0.4 (0.0-0.7); EOS % 5.4 % (1.5-5.0); HEMOGLOBIN 14.1 g/dL (14.0-18.0); LYMPH # 3.4 (1.2-3.4); LYMPH % 42.3 % (22.0-35.0); MEAN CELL VOLUME 89.8 fl (80.0-105.0); MEAN CORPUSCULAR HEMOGLOBIN 30.7 pg (25.0-35.0); MEAN CORPUSCULAR HGB CONC 34.2 g/dl (31.0-37.0); MEAN PLATELET VOLUME 11.8 fl (7.0-11.0); MONO # 0.4 (0.1-0.6); MONO % 4.8 % (1.0-6.0); RBC 4.59 10^6/uL (3.5-6.1); RED CELL DISTRIBUTION WIDTH 12.6 % (11.5-14.5)
[2019-01-16 22:15] LABS: TROPONIN I < 0.01 ng/mL
[2019-01-16 22:35] LABS: T3 1.19 ng/mL (0.97-1.69)
[2019-01-16 23:17] VITALS: BP 115/60; PULSE 102; RESP 20; O2SAT 99
--- NOTE | 2019-01-17 10:48 | RAD ---
Date of service: 01/16/2019 HISTORY: palpitations COMPARISON: 07/23/2018 FINDINGS: LUNGS: No active pulmonary disease. PLEURA: No significant pleural effusion identified, no pneumothorax apparent. CARDIOVASCULAR: No aortic atherosclerotic calcification present. Normal cardiac size. No pulmonary vascular congestion. OSSEOUS STRUCTURES: No significant abnormalities. VISUALIZED UPPER ABDOMEN: Normal. OTHER FINDINGS: None. IMPRESSION: No active disease.
--- NOTE | 2019-01-17 21:10 | CARD ---
APPROVED REPORT Date of service: 01/16/2019 EKG Measurement Heart [id number] <Conclusion> Sinus tachycardia Otherwise normal ECG
== END 2019-01-16 23:25 | disposition home or self-care (01) ==
LOC: ED 21:06
DX: R00.2 Palpitations (principal); E78.5 Hyperlipidemia, unspecified; F41.9 Anxiety disorder, unspecified
CPT/HCPCS: 71045; 80053; 82550; 83615; 83735; 84443; 84480; 84484; 85025; 85378; 93005; 96374; 99283; J2405; J7030